=== PATIENT | female | born 1960 | race Caucasian/White ===

== ENCOUNTER → 2021-02-03 | Outpatient (CLI) | payer OTHER ==
[~2021-02-03] MED LIST: CARAFATE 1 GM TA1 GM GT; COLACE100 MG PO; MULTIPLE VITAM1 EAC2 PO; NORCO 7.5-3251 EACH PO; PROTONIX 40 MG40 M1 PO; PROTONIX20 MG PO; VITAMIN D21250 MCG PO; VOLTAREN100 GM TP
== END ==
LOC: US 01-22 09:00 → EXRD 01-27 09:30 → US 10:30
DX: R10.11 Right upper quadrant pain (principal)
CPT/HCPCS: 76705

== ENCOUNTER → 2021-05-27 | Outpatient (CLI) | payer OTHER | LOC: RAD 11:08 | DX: K59.09 Other constipation (principal); R14.3 Flatulence | CPT/HCPCS: 74018 ==

== ENCOUNTER → 2021-11-06 | Outpatient (CLI) | payer OTHER ==
[2021-11-06 10:48] LABS: HEMOGLOBIN 15.5 gm/dl (12.3-15.3); RED BLOOD COUNT 4.95 M/UL (4.00-5.10); WHITE BLOOD COUNT 10.5 K/UL (4.5-11.0)
[2021-11-06 11:12] LABS: BUN/CREATININE RATIO 21 (0-10)
== END ==
LOC: LAB 10:18
PROVIDERS: Family Medicine
DX: R53.83 Other fatigue (principal)
CPT/HCPCS: 36415; 80053; 83036; 83540; 83550; 84443; 85025; 86140

== ENCOUNTER → 2022-03-05 | Outpatient (CLI) | payer OTHER | LOC: RAD 10:46 | DX: M47.26 Other spondylosis with radiculopathy, lumbar region (principal) | CPT/HCPCS: 72100 ==